=== PATIENT | female | born 1945 | race Caucasian/White ===

== ENCOUNTER 2019-06-08 17:08 | Emergency (ER) | payer MEDICARE, OTHER ==
--- NOTE | 2019-06-08 19:05 | EDM.PDOC ---
ED HPI GENERAL MEDICAL PROBLEM - General Chief Complaint: Respiratory Problem Stated Complaint: ASTHMA Time Seen by Provider: 06/08/19 17:55 Source of Information: Reports: Patient History Limitations: Reports: No Limitations - History of Present Illness INITIAL COMMENTS - FREE TEXT/NARRATIVE: 73-year-old female presents for evaluation and treatment of upper respiratory symptoms. Patient reports for the past couple of days she has been experiencing a productive cough, sore throat, runny nose, postnasal drip and sinus pressure. She states initially she had fevers, chills, body aches and headaches with these have improved. She reports a productive cough and she is coughing up a white phlegm. She has a history of asthma and uses Symbicort, albuterol and Claritin for this. Additionally she has been using [id number] nasal spray. She has been using her Symbicort daily and her albuterol 1-2 times per day. She is not appreciating worsening shortness of breath. Primary care provider is Silva joshua. She did not yet receive the flu vaccine this season. - Related Data Allergies Allergy/AdvReac Type Severity Reaction Status Date / Time No Known Allergies Allergy Verified 06/08/19 17:23 Home Meds: Home Meds Doxycycline [Vibramycin] 100 mg PO BID #20 cap 06/08/19 [Rx] Past Medical History Cardiovascular History: Reports: Hypertension Respiratory History: Reports: Asthma, Sleep Apnea Other Respiratory History: c pap at night Endocrine/Metabolic History: Reports: Hypothyroidism Oncologic (Cancer) History: Reports: Breast Social & Family History - Tobacco Use Smoking Status *Q: Former Smoker Used Tobacco, but Quit: Yes Month/Year Tobacco Last Used: 1999 - Caffeine Use Caffeine Use: Reports: Coffee - Recreational Drug Use Recreational Drug Use: No ED ROS GENERAL - Review of Systems Review Of Systems: See Below Constitutional: Denies: Fever, Chills HEENT: Reports: Sinus Problem, Throat Pain, Other (post nasal drip). Denies: Ear Pain Respiratory: Denies: Shortness of Breath GI/Abdominal: Denies: Nausea, Vomiting Neurological: Denies: Headache ED EXAM, GENERAL - Physical Exam Exam: See Below Exam Limited By: No Limitations General Appearance: Alert, WD/WN, No Apparent Distress, Obese Eye Exam: Bilateral Eye: Normal Inspection Ears: Normal External Exam, Normal Canal, Hearing Grossly Normal, Normal TMs Nose: Normal Inspection Throat/Mouth: Normal Inspection, Normal Lips, Normal Voice, No Airway Compromise Respiratory/Chest: No Respiratory Distress, Lungs Clear, Normal Breath Sounds Cardiovascular: Normal Peripheral Pulses, Regular Rate, Rhythm, No Murmur Neurological: Alert, Oriented, Normal Cognition Psychiatric: Normal Affect, Normal Mood Skin Exam: Warm, Dry, Normal Color Course - Vital Signs Last Recorded V/S: Last Vital Signs Temp 98.1 F 06/08/19 17:23 Pulse 85 06/08/19 17:23 Resp 13 06/08/19 17:23 BP 166/59 H 06/08/19 17:23 Pulse Ox 95 06/08/19 17:23 - Orders/Labs/Meds Orders: Active Orders 24 hr Category Date Time Status Chest 2V [CR] Stat Exams 06/08/19 18:08 Taken - Radiology Interpretation Free Text/Narrative:: 2 view chest xray reviewed by myself and shows a questionable area in the left lower lobe. Heart border is not well visualized. - Re-Assessments/Exams Free Text/Narrative Re-Assessment/Exam: 06/08/19 19:06 I reviewed the xray results with the patient. Suspicious area to the left lower lobe. Heart border is not well visualized. Will treat with doxycycline for the sinus infection and to cover for pneumonia. Discharge instructions as documented. Departure - Departure Time of Disposition: 19:07 Disposition: Home, Self-Care 01 Condition: Fair Clinical Impression: Sinusitis, Pneumonia - Discharge Information *PRESCRIPTION DRUG MONITORING PROGRAM REVIEWED*: No *COPY OF PRESCRIPTION DRUG MONITORING REPORT IN PATIENT SOULEYMANE: No Prescriptions: Doxycycline [Vibramycin] 100 mg PO BID #20 cap Instructions: Sinusitis, Adult, [id number], Community-Acquired Pneumonia, Adult, [id number] Referrals: Katelynn Joshua NP [Primary Care Provider] - Forms: ED Department Discharge Additional Instructions: doxycycline 1 cpa PO bid x 10 days. take with food. Rest. Drink plenty of fluids. Follow-up with PCP in 7-10 days for a recheck of your symptoms. please return to the ER should your symptoms change or worsen. - My Orders Last 24 Hours: My Active Orders 06/08/19 18:08 Chest 2V [CR] Stat - Assessment/Plan Last 24 Hours: My Active Orders 06/08/19 18:08 Chest 2V [CR] Stat
--- NOTE | 2019-06-09 13:56 | CR ---
Chest: Two views of the chest were obtained. Comparison: No prior chest x-ray. Heart is enlarged. Tortuous thoracic aorta is noted. Moderately large hiatal hernia is seen. Diaphragms are flattened on the lateral view compatible with emphysematous change. Mild degenerative change is scattered within the spine with minimal scoliosis. No acute parenchymal change is seen within the lungs. Impression: 1. Emphysematous change. 2. Other findings as noted above. 3. Nothing acute is definitely appreciated on two-view chest x-ray. Diagnostic code #2
== END 2019-06-08 19:20 | disposition home or self-care (01) ==
LOC: JD.ED 17:08
DX: J18.9 Pneumonia, unspecified organism (principal); J32.9 Chronic sinusitis, unspecified; G47.30 Sleep apnea, unspecified; I10 Essential (primary) hypertension; J45.909 Unspecified asthma, uncomplicated; E66.9 Obesity, unspecified; Z68.41 Body mass index [BMI] 40.0-44.9, adult; Z79.51 Long term (current) use of inhaled steroids; Z79.899 Other long term (current) drug therapy; Z87.891 Personal history of nicotine dependence
CPT/HCPCS: 71046; 71046-26; 99283; 99283-25